=== PATIENT | male | born 1985 | race Caucasian/White ===

== ENCOUNTER 2017-12-30 13:06 | Emergency (ER) | payer SELFPAY ==
[~2017-12-30] VITALS: Ht 165.1 cm; Wt 65.0 kg
[~2017-12-30 13:06] MED LIST: CLIN1CAP5 PO; cipro
[2017-12-30 13:16] VITALS: BP 134/63; PULSE 108; RESP 20; TEMP 98.5; O2SAT 99
[2017-12-30] MEDS ORDERED: KETOROLAC TROMETHAMINE 60 MG/2 ML (IM) VIAL IM ONE (13:30)
[2017-12-30] MEDS ORDERED: IBUPROFEN 800 MG TAB PO ONE (13:45)
[2017-12-30] MEDS ORDERED: SODIUM CHLORIDE 0.9% FLUSH 10 ML FLUSH IV FLUSH PRN (14:15)
--- NOTE | 2017-12-30 14:23 | PD ---
HPI Chief Complaint: Pain: Acute or Chronic Time Seen by Provider: 13:24 Travel History International Travel<30 days: No Contact w/Intl Traveler<30days: No Traveled to known affect area: No History of Present Illness HPI 32-year-old male presents to the emergency department with complaint of left lower rib cage pain and left upper quadrant abdominal pain after he slipped off of a trailer and fell hitting the metal frame edge of the trailer. He denies hitting his head or loss of consciousness. Denies neck pain or back pain. Denies shortness of breath. Denies hematemesis. Denies vomiting. Says he can feel his ribs sticking out. Has not taken any medications or try any treatments to alleviate his symptoms. Rates pain 8/10. Constantly aggravated. Worse with movement and deep breaths. No known relieving factors. No primary care provider. Allergies to penicillin. History of seizures. Has no other medical complaints. No other modifying factors or associated signs and symptoms per [facility] Past Medical History ADD: Yes ADHD: Yes Bipolar Disorder: Yes Anxiety: Yes Diminished Hearing: No GERD: Yes ("HEART BURN") Schizophrenia: Yes Social History Alcohol Use: No Tobacco Use: Yes (1/2PPD) Substance Use: Yes (COCAINE, MARIJUANA) Allergies-Medications (Allergen,Severity, Reaction): Coded Allergies: penicillin G (Unverified Allergy, Mild, DOESN'T KNOW REACTION, 12/30/17) Reported Meds & Prescriptions Reported Meds & Active Scripts Active Reported [cipro] Review of Systems Except as stated in HPI: all other systems reviewed are Neg Physical Exam Narrative GENERAL: Well-nourished, well-developed male patient, in no acute distress; afebrile SKIN: Warm and dry. HEAD: Atraumatic. Normocephalic. EYES: Pupils equal and round. No scleral icterus. No injection or drainage. ENT: Mucosa pink and moist. Airway patent. NECK: Trachea midline. CHEST: Left lower anterior rib, at approximately the 10th and 11th rib, with palpable lump; without deformity or crepitance. No retractions or use of accessory muscles. CARDIOVASCULAR: Regular rate and rhythm. No murmur appreciated. RESPIRATORY: No accessory muscle use. Clear to auscultation. Breath sounds equal bilaterally. GASTROINTESTINAL: Abdomen soft, tenderness on palpation to left upper quadrant, nondistended. Hepatic and splenic margins not palpable. Bowel sounds are active 4 quadrants. Nonrigid. Guarding on palpation to left upper quadrant. MUSCULOSKELETAL: No obvious deformities. No clubbing. No cyanosis. No edema. NEUROLOGICAL: Awake and alert. Oriented 3. No obvious cranial nerve deficits. Motor grossly within normal limits. Normal speech. PSYCHIATRIC: Appropriate mood and affect; insight and judgment normal. Data Data Last Documented VS Vital Signs Date Time Temp Pulse Resp B/P (MAP) Pulse Ox O2 Delivery O2 Flow Rate FiO2 12/30/17 13:16 98.5 108 20 134/63 (86) 99 Orders Orders Chest, Pa & Lat (12/30/17 13:24) Ketorolac Inj (Toradol Inj) (12/30/17 13:30) Resp Incentive Spirometry (12/30/17 ) Ibuprofen (Motrin) (12/30/17 13:45) Complete Blood Count With Diff (12/30/17 14:11) Comprehensive Metabolic Panel (12/30/17 14:11) Lipase (12/30/17 14:11) Prothrombin Time / Inr (Pt) (12/30/17 14:11) Act Partial Throm Time (Ptt) (12/30/17 14:11) Ct Abd/Pel W Iv Contrast(Rout) (12/30/17 14:11) Sodium Chloride 0.9% Flush (Ns Flush) (12/30/17 14:15) Labs Laboratory Tests Test 12/30/17 14:30 White Blood Count 9.1 TH/MM3 Red Blood Count 3.94 MIL/MM3 Hemoglobin 12.9 GM/DL Hematocrit 36.9 % Mean Corpuscular Volume 93.7 FL Mean Corpuscular Hemoglobin 32.8 PG Mean Corpuscular Hemoglobin Concent 35.0 % Red Cell Distribution Width 13.4 % Platelet Count 306 TH/MM3 Mean Platelet Volume 7.1 FL Neutrophils (%) (Auto) 56.7 % Lymphocytes (%) (Auto) 26.4 % Monocytes (%) (Auto) 9.6 % Eosinophils (%) (Auto) 6.8 % Basophils (%) (Auto) 0.5 % Neutrophils # (Auto) 5.2 TH/MM3 Lymphocytes # (Auto) 2.4 TH/MM3 Monocytes # (Auto) 0.9 TH/MM3 Eosinophils # (Auto) 0.6 TH/MM3 Basophils # (Auto) 0.0 TH/MM3 CBC Comment DIFF FINAL Differential Comment Prothrombin Time 10.5 SEC Prothromb Time International Ratio 1.0 RATIO Activated Partial Thromboplast Time 27.1 SEC Blood Urea Nitrogen 16 MG/DL Creatinine 0.80 MG/DL Random Glucose 103 MG/DL Total Protein 7.2 GM/DL Albumin 3.7 GM/DL Calcium Level 8.7 MG/DL Alkaline Phosphatase 56 U/L Aspartate Amino Transf (AST/SGOT) 26 U/L Alanine Aminotransferase (ALT/SGPT) 67 U/L Total Bilirubin 0.1 MG/DL Sodium Level 142 MEQ/L Potassium Level 4.3 MEQ/L Chloride Level 108 MEQ/L Carbon Dioxide Level 27.3 MEQ/L Anion Gap 7 MEQ/L Estimat Glomerular Filtration Rate 112 ML/MIN Lipase 98 U/L MDM Medical Decision Making Medical Screen Exam Complete: Yes Emergency Medical Condition: Yes Medical Record Reviewed: Yes Differential Diagnosis Rib fracture, rib contusion, abdominal contusion, splenic laceration Narrative Course 32-year-old male with left lower rib cage injury and left upper abdominal pain after mechanical slip and fall. Denies hitting his head or loss of consciousness. Denies neck pain or back pain. CBC, CMP, lipase, chest x-ray, CT abdomen/pelvis, IV, ibuprofen ordered. AMA: The risks of leaving against medical advice without further evaluation treatment were discussed with the patient. These risks include cardiac dysfunction, cardiac dysrhythmia, possible heart attack, possible stroke or . The patient indicated understanding of these risks and appeared to have the capacity to make this decision. Diagnosis Primary Impression: Left against medical advice Disposition: 07 AGAINST MEDICAL ADVICE Dominga Watson Dec 30, 2017 14:23
--- NOTE | 2017-12-30 14:33 | RADRPT ---
EXAM DATE: 12/30/2017 1:49 PM EDT AGE/SEX: 32 years / Male INDICATIONS: Left anterior lateral rib pain, Fell CLINICAL DATA: This is the patient's initial encounter. Patient reports that signs and symptoms have been present for 1 day and indicates a pain score of 8/10. MEDICAL/SURGICAL HISTORY: None. None. COMPARISON: No prior exams available for comparison. FINDINGS: PA and lateral views of the chest demonstrate the lungs to be symmetrically aerated without evidence of mass, infiltrate or effusion. The cardiomediastinal contours are unremarkable. Osseous structures are intact. CONCLUSION: No acute cardiopulmonary process. Electronically signed by: Larry Adams MD 12/30/2017 2:32 PM EDT
[2017-12-30 14:52] LABS: AUTOMATED NEUTROPHIL # 5.2 TH/MM3 (1.8-7.7); BASOPHIL % 0.5 % (0.0-2.0); EOSINOPHIL # 0.6 TH/MM3 (0-0.4); EOSINOPHIL % 6.8 % (0.0-4.0); HEMATOCRIT 36.9 % (39.0-51.0); HEMOGLOBIN 12.9 GM/DL (13.0-17.0); LYMPH % 26.4 % (9.0-44.0); LYMPHOCYTE # 2.4 TH/MM3 (1.0-4.8); MEAN CELL VOLUME 93.7 FL (80.0-100.0); MEAN CORPUSCULAR HEMOGLOBIN 32.8 PG (27.0-34.0); MEAN PLATELET VOLUME 7.1 FL (7.0-11.0); MONO % 9.6 % (0.0-8.0); MONOCYTE # 0.9 TH/MM3 (0-0.9); NEUT % 56.7 % (16.0-70.0); PLATELET COUNT 306 TH/MM3 (150-450); RED BLOOD COUNT 3.94 MIL/MM3 (4.50-5.90); RED CELL DISTRIBUTION WIDTH 13.4 % (11.6-17.2); WHITE BLOOD COUNT 9.1 TH/MM3 (4.0-11.0)
[2017-12-30 15:14] LABS: PROTHROMBIN TIME - PATIENT 10.5 SEC (9.8-11.6)
[2017-12-30 15:24] LABS: ALBUMIN 3.7 GM/DL (3.4-5.0); ALT (GPT) 67 U/L (12-78); AST (GOT) 26 U/L (15-37); BICARBONATE 27.3 MEQ/L (21.0-32.0); BLOOD UREA NITROGEN 16 MG/DL (7-18); CALCIUM 8.7 MG/DL (8.5-10.1); CHLORIDE 108 MEQ/L (98-107); GLOMERULAR FILTRATION RATE 112 ML/MIN (>89); GLUCOSE,RANDOM 103 MG/DL (74-106); SODIUM (NA) 142 MEQ/L (136-145)
[2017-12-30 15:26] LABS: ALKALINE PHOSPHATASE 56 U/L (45-117); TOTAL BILIRUBIN ADULT 0.1 MG/DL (0.2-1.0); TOTAL PROTEIN 7.2 GM/DL (6.4-8.2)
== END 2017-12-30 15:16 | disposition left against medical advice (07) ==
LOC: NEPK 13:06
DX: R07.81 Pleurodynia (principal); R10.12 Left upper quadrant pain; F14.90 Cocaine use, unspecified, uncomplicated; F12.90 Cannabis use, unspecified, uncomplicated; F17.200 Nicotine dependence, unspecified, uncomplicated; F90.9 Attention-deficit hyperactivity disorder, unspecified type; F31.9 Bipolar disorder, unspecified; F41.9 Anxiety disorder, unspecified; K21.9 Gastro-esophageal reflux disease without esophagitis; F20.9 Schizophrenia, unspecified; Z88.0 Allergy status to penicillin
CPT/HCPCS: 71046; 80053; 83690; 85025; 85610; 85730